=== PATIENT | female | born 1995 | race American Indian/Alaskan Native ===

== ENCOUNTER 2020-03-30 02:38 | Emergency (ER) | payer MEDICAID ==
[2020-03-30 03:29] LABS: Basophils % (Auto) 0.5 % (0.0-1.8); Eosinophils # (Auto) 0.1 K/mm3 (0.0-0.4); Eosinophils % (Auto) 1.1 % (0.0-4.3); Hematocrit 42.1 % (30.3-42.9); Hemoglobin 14.1 gm/dl (10.1-14.3); Lymphocytes # (Auto) 2.2 K/mm3 (1.2-5.4); Lymphocytes % (Auto) 27.5 % (13.4-35.0); Mean Corpuscular HGB Conc 34 % (30-34); Mean Corpuscular Volume 96 fl (79-97); Monocytes # (Auto) 0.6 K/mm3 (0.0-0.8); Monocytes % (Auto) 7.1 % (0.0-7.3); Platelet Count 156 K/mm3 (140-440); Red Blood Count 4.39 M/mm3 (3.65-5.03); Red Cell Distribution Width 16.3 % (13.2-15.2)
[2020-03-30 03:52] LABS: Bilirubin,Urine NEG (Negative); Blood,Urine NEG (Negative); Color,Urine Yellow (Yellow); Mucus,Urine FEW /HPF; Protein,Urine <15 mg/dL mg/dL (Negative); Urobilinogen,Urine < 2.0 mg/dL (<2.0); WBC,Urine < 1.0 /HPF (0.0-6.0)
[2020-03-30 04:33] VITALS: BP 97/60
--- NOTE | 2020-03-30 04:34 | Emergency Department Report ---
ED HPI - General Chief complaint: Vaginal Bleeding Stated complaint: VAGINAL BLEEDING, ABDOMINAL PAIN Source: patient Mode of arrival: Ambulatory Limitations: No Limitations - History of Present Illness Initial comments: 24-year-old -[place] female presents to the emergency room stating she is 6 weeks and is having some mild abdominal sharp pains that are intermittent with vaginal bleeding. Patient states that it started last night approximately 8 PM. Patient states she has not saturated any pads. Patient reports that she seen blood on the toilet paper that is dark brown. Patient reports she is 4 para 2. Last menstrual period was 02/12/2020 and ended 02/16/2020. Patient denies any nausea vomiting but does admit to weight loss. Patient states that she will was seen by her OB doctor and was sent to have an ultrasound done. Patient reports that her last she did have complications. Patient has no known drug allergies. MD Complaint: vaginal bleeding Radiation: suprapubic Quality: cramping, stabbing Consistency: intermittent Improves with: none Worsens with: none Associated symptoms: vaginal bleeding, abdominal pain Vaginal bleeding: light :: Yes Number of weeks : 6 OB History - Previous Pregnancies: other Last menstrual period: 02/12/20 Pre-clemente care: followed by OB - Related Data : 4 Para: 2 Ab: 1 Allergies Allergy/AdvReac Type Severity Reaction Status Date / Time No Known Allergies Allergy Unverified 08/14/15 01:30 ED Review of Systems ROS: Stated complaint: VAGINAL BLEEDING, ABDOMINAL PAIN Other details as noted in HPI ED Past Medical Hx - Past Medical History Previous Medical History?: Yes Hx Headaches / Migraines: Yes Hx Psychiatric Treatment: Yes (anxiety attacks) - Surgical History Past Surgical History?: Yes Additional Surgical History: 2010 - Social History Smoking Status: Current Some Day Smoker Substance Use Type: None ED Physical Exam - General Limitations: No Limitations General appearance: alert, in no apparent distress - Head Head exam: Present: atraumatic, normocephalic - Eye Eye exam: Present: normal appearance - ENT ENT exam: Present: mucous membranes moist - Neck Neck exam: Present: normal inspection, full ROM - Respiratory Respiratory exam: Present: normal lung sounds bilaterally. Absent: respiratory distress - Cardiovascular Cardiovascular Exam: Present: regular rate, normal rhythm. Absent: systolic murmur, diastolic murmur, rubs, gallop - GI/Abdominal GI/Abdominal exam: Present: soft, normal bowel sounds. Absent: distended, tenderness - Extremities Exam Extremities exam: Present: normal inspection, full ROM - Back Exam Back exam: Present: normal inspection - Neurological Exam Neurological exam: Present: alert, oriented X3, normal gait - Psychiatric Psychiatric exam: Present: normal affect, normal mood - Skin Skin exam: Present: warm, dry, intact, normal color. Absent: rash ED Course Vital Signs 03/30/20 03/30/20 02:43 04:33 Temperature 98.7 F 98.1 F Pulse Rate 92 H 71 Respiratory 16 20 Rate Blood Pressure 133/51 Blood Pressure 97/60 [Right] O2 Sat by Pulse 100 100 Oximetry ED Medical Decision Making - Lab Data Result diagrams: 03/30/20 02:56 Laboratory Tests 03/30/20 03/30/20 03/30/20 02:48 02:56 02:56 WBC 7.9 RBC 4.39 Hgb 14.1 Hct 42.1 MCV 96 MCH 32 MCHC 34 RDW 16.3 H Plt Count 156 Lymph % (Auto) 27.5 [place] % (Auto) 7.1 Eos % (Auto) 1.1 Baso % (Auto) 0.5 Lymph # 2.2 [place] # 0.6 Eos # 0.1 Baso # 0.0 Seg Neutrophils % 63.8 Seg Neutrophils # 5.0 HCG, Quant 1235 H Urine Color Yellow Urine Turbidity Clear Urine pH 7.0 Ur Specific Martin 1.011 Urine Protein <15 mg/dl Urine Glucose (UA) Neg Urine Ketones Tr Urine Blood Neg Urine Nitrite Neg Urine Bilirubin Neg Urine Urobilinogen < 2.0 Ur Leukocyte Esterase Neg Urine WBC (Auto) < 1.0 Urine RBC (Auto) 1.0 U Epithel Cells (Auto) 4.0 Urine Mucus Few - Radiology Data Radiology results: report reviewed Report Referring Physician:ED DOCPatient Name:IAN LUIPatient ID:[id number] of :[id number]:FemaleAccession:[id number] Da te:[id number] Status:Finalized Findings [facility] [address] [place] [address] Ultrasound Report Signed Patient: IAN LUI MR#: [id number] : 1995 Acct:[id number] Age/Sex: 24 / F ADM Date: 03/30/20 Loc: ED Attending Dr: Ordering Physician: CHARU BAHENA MD Date of Service: 03/30/20 Procedure(s): US OB transvaginal Accession Number(s): [id number] cc: CHARU BAHENA MD ULTRASOUND OBSTETRIC Indication: vaginal bleeding Findings: Transabdominal and transvaginal imaging is performed Small gestational sac is identified within the uterine cavity with what appears to be a small yolk sac. This measures 4.3 mm correlating to a 5 week 1 day gestation. No pole is seen. No cardiac activity is identified at this time. There is a 1.4 cm complex cyst in the right ovary. Nabothian cysts are noted at the cervix. Impression: There is a small gestational sac with yolk sac seen correlating to a 5 week 1 day gestation. No pole is seen at this time. No cardiac activity can be documented. Follow-up ultrasound s hould be obtained as clinically warranted to confirm viable .. Signer Name: Charlie White MD Signed: 03/30/2020 4:30 AM - Medical Decision Making 24-year-old -[place] female presents to the emergency room stating she is 6 weeks and is having some mild abdominal sharp pains that are intermittent with vaginal bleeding. Patient states that it started last night approximately 8 PM. Patient states she has not saturated any pads. Patient reports that she seen blood on the toilet paper that is dark brown. Patient reports she is 4 para 2. Last menstrual period was 02/12/2020 and ended 02/16/2020. Patient denies any nausea vomiting but does admit to weight loss. Patient states that she will was seen by her OB doctor and was sent to have an ultrasound done. Patient reports that her last she did have complications. Patient has no known drug allergies. Ultrasound shows that she is approximately 5 weeks . No cardiac activities may be due to early . Patient is recommended to follow-up with her OB on Wednesday or Wednesday of next week to have a repeat hCG and ultrasound. Critical care attestation.: If time is entered above; I have spent that time in minutes in the direct care of this critically ill patient, excluding procedure time. ED Disposition Clinical Impression: Threatened miscarriage in early Disposition: DC-01 TO HOME OR SELFCARE Is pt being admited?: No Does the pt Need Aspirin: No Condition: Stable Instructions: Threatened Miscarriage (ED) Additional Instructions: Please follow-up with your OB provider in the Wednesday or Wednesday of next week to have a repeat hCG and ultrasound. Your quantitative was [phone] Referrals: [facility] [Provider Group] - 3-5 Days
--- NOTE | 2020-03-30 04:35 | Ultrasound Report ---
ULTRASOUND OBSTETRIC Indication: vaginal bleeding Findings: Transabdominal and transvaginal imaging is performed Small gestational sac is identified within the uterine cavity with what appears to be a small yolk sa c. This measures 4.3 mm correlating to a 5 week 1 day gestation. No pole is seen. No card iac activity is identified at this time. There is a 1.4 cm complex cyst in the right ovary. Nabothian cysts are noted at the cervix. Impression: There is a small gestational sac with yolk sac seen correlating to a 5 week 1 day gestation. No pole is seen at this time. No cardiac activity can be documented. Follow-up ultrasound should be obtained as clinically warranted to confirm viable .. Signer Name: Charlie White MD Signed: 03/30/2020 4:30 AM Workstation Name: [id number]
== END 2020-03-30 04:45 | disposition home or self-care (01) ==
LOC: ED 02:38
DX: O20.0 Threatened abortion (principal); G43.909 Migraine, unspecified, not intractable, without status migrainosus; F41.9 Anxiety disorder, unspecified; F17.200 Nicotine dependence, unspecified, uncomplicated; Z3A.01 Less than 8 weeks gestation of pregnancy
CPT/HCPCS: 36415; 76801; 76817; 81001; 84702; 85025; 86900; 86901; 99283